=== PATIENT | male | born 1975 | race Caucasian/White ===

== ENCOUNTER 2016-08-21 20:20 | Emergency (ER) | payer OTHER ==
[~2016-08-21] VITALS: Ht 182.9 cm; Wt 81.6 kg
[2016-08-21 20:38] VITALS: BP 150/77
[2016-08-21] MEDS ORDERED: CYCL10TA2 PO (21:00)
[2016-08-21] MEDS ORDERED: IBUP-1060 PO (21:00)
--- NOTE | 2016-08-21 21:00 | PHYS DOC ---
Past Medical History Past Medical History: No Pertinent History Past Surgical History: No Surgical History Alcohol Use: Heavy Drug Use: None Adult General Chief Complaint Chief Complaint: BACK PAIN OR INJURY HPI HPI Patient is a 41 year old male presents to the emergency department with a history of catching a 400 pound bowel. Patient states he is having sharp pain that radiates into the left left upper leg. He denies any loss of stool or urine. Patient states he has take 2 shots of alcohol for the pain without relief. Review of Systems Review of Systems Constitutional: Denies fever or chills [] Eyes: Denies change in visual acuity, redness, or eye pain [] HENT: Denies nasal congestion or sore throat [] Respiratory: Denies cough or shortness of breath [] Cardiovascular: No additional information not addressed in HPI [] GI: Denies abdominal pain, nausea, vomiting, bloody stools or diarrhea [] : Denies dysuria or hematuria [] Musculoskeletal: lower back pain denies joint pain [] Integument: Denies rash or skin lesions [] Neurologic: Denies headache, focal weakness or sensory changes [] Endocrine: Denies polyuria or polydipsia [] Physical Exam Physical Exam Constitutional: Well developed, well nourished, no acute distress, non-toxic appearance. [] HENT: Normocephalic, atraumatic, bilateral external ears normal, oropharynx moist, no oral exudates, nose normal. [] Eyes: PERRLA, EOMI, conjunctiva normal, no discharge. [] Neck: Normal range of motion, no tenderness, supple, no stridor. [] Cardiovascular:Heart rate regular rhythm, no murmur [] Lungs & Thorax: Bilateral breath sounds clear to auscultation [] Skin: Warm, dry, no erythema, no rash. [] Back: No cervical, thoracic or lumbar spine tenderness noted, no crepitus, no deformity no step-offs noted, no CVA tenderness. Patient with tenderness noted across the lower back Extremities: No tenderness, no cyanosis, no clubbing, ROM intact, no edema. Patient was able to perform straight leg raises with little discomfort noted. Peripheral pulse 2+ cap refill brick less than 2 seconds. Neurologic: Alert and oriented X 3, normal motor function, normal sensory function, no focal deficits noted. [] Psychologic: Affect normal, judgement normal, mood normal. [] Current Patient Data Vital Signs Vital Signs Date Time Temp Pulse Resp B/P (MAP) Pulse Ox O2 Delivery O2 Flow Rate FiO2 08/21/16 20:38 97.9 69 16 97 Room Air 97.9 EKG EKG [] Radiology/Procedures Radiology/Procedures [] Course & Med Decision Making Course & Med Decision Making Pertinent Labs and Imaging studies reviewed. (See chart for details) Patient was provided with norco, flexeril and ibuprofen here in the emergency department. Patient will be discharged home in stable with flexeril and ibuprofen. Recommended ice packs to the area. Patient provided with discharge instructions, treatment regimen and followup recommendations, [] Dragon Disclaimer Dragon Disclaimer This electronic medical record was generated, in whole or in part, using a voice recognition dictation system. Departure Departure Impression: Primary Impression: Low back strain Disposition: HOME, SELF-CARE Condition: STABLE Patient Instructions: Back Pain, Adult, [id number] Additional Instructions: Activity as tolerated Medication as prescribed Ibuprofen 800 mg every 8 hours. This medication with food as it may cause an upset stomach. If this upset stomach this develops stop taking the medication. Flexeril will cause drowsiness do not take any be alert and oriented. Ice packs on 20 minutes off 20 minutes several times a day. Follow-up to primary care physician next 7-10 days. Return back to emergency prior signs symptoms of become worse. Scripts Ibuprofen (IBUPROFEN) 800 Mg Tablet 800 MG PO PRN Q8HRS Y for INFLAMMATION, #30 TAB Prov: LORENA DRAPER APRN 08/21/16 Cyclobenzaprine Hcl (CYCLOBENZAPRINE HCL) 10 Mg Tablet 10 MG PO TID Y for MUSCLE SPASMS, #30 TAB Prov: LORENA DRAPER APRN 08/21/16 LORENA DRAPER APRN August 21, 2016 21:00
[2016-08-21] MEDS ORDERED: CYCLOBENZAPRINE 10 MG TABLET. PO ONE (21:15)
[2016-08-21] MEDS ORDERED: HYDROcodone/APAP 5/325MG 1 TAB TABLET PO ONE (21:15)
[2016-08-21] MEDS ORDERED: IBUPROFEN 800 MG TABLET. PO ONE (21:15)
== END 2016-08-21 21:21 | disposition home or self-care (01) ==
LOC: ER 21:01
DX: S39.012A Strain of muscle, fascia and tendon of lower back, initial encounter (principal); X58.XXXA Exposure to other specified factors, initial encounter; Y93.89 Activity, other specified; Y92.89 Other specified places as the place of occurrence of the external cause; Y99.8 Other external cause status
CPT/HCPCS: 99284